=== PATIENT | female | born 1935 | race Caucasian/White ===

== ENCOUNTER → 2016-07-08 | Outpatient (CLI) | payer MEDICARE ==
[~2016-07-08] MED LIST: AMITRIPTYLINE25 MG PO; CALCIUM 500500 M2 PO; CLINDAMYCIN HC300 MG PO; HYDROCODONE BIT1 T11 PO; KEFLEX500 MG PO; LASIX40 MG PO; MACROBID100 M1 PO; MELOXICAM15 MG PO; MOBIC15 MG PO; NEURONTIN100 MG PO; POTASSIUM20 MEQ PO; PRILOSEC20 MG PO; RANITIDINE300 MG PO; SYNTHROID0.05 MG PO; VITAMIN B1100 MCG/ML IM; VITAMIN D1000 IU PO; XANAX0.25 MG PO; ZOCOR40 MG PO
== END | disposition home or self-care (01) ==
LOC: US 15:03
DX: M25.512 Pain in left shoulder (principal); M25.412 Effusion, left shoulder; R60.0 Localized edema

== ENCOUNTER 2017-04-06 18:58 | Emergency (ER) | payer MEDICARE ==
[~2017-04-06] VITALS: Ht 157.4 cm
[2017-04-06 19:35] VITALS: BP 170/80
[2017-04-06 20:15] LABS: BASO # 0.1 10*3/uL (0.0-0.1); BASO % 0.6 % (0.0-1.0); EOS # 0.1 10*3/uL (0.0-0.4); EOS % 1.2 % (1.0-4.0); HEMATOCRIT 39.8 % (37.0-47.0); HEMOGLOBIN 13.4 g/dl (12.0-16.0); LYMPH # 1.7 10*3/uL (1.3-4.4); LYMPH % 20.1 % (27.0-41.0); MEAN CELL VOLUME 91.9 fl (81.0-99.0); MEAN CORPUSCULAR HGB 30.9 pg (27.0-31.0); MEAN CORPUSCULAR HGB CONC 33.7 g/dl (33.0-37.0); MEAN PLATELET VOLUME 10.5 fl (9.6-12.3); MONO # 0.6 10*3/uL (0.1-1.0); MONO % 7.7 % (3.0-9.0); NEUT # 5.7 10*3/uL (2.3-7.9); NEUT % 70.2 % (47.0-73.0); PLATELET COUNT AUTOMATED 229 10*3/uL (130-400); RED BLOOD COUNT 4.33 10*6/uL (4.10-5.10); RED CELL DISTRI WIDTH 13.2 % (0-14.5); WHITE BLOOD COUNT 8.2 10*3/uL (4.8-10.8)
[2017-04-06 20:27] LABS: BUN 19 mg/dl (7-24); CHLORIDE 106 mmol/L (98-107); CREATININE 0.94 mg/dL (0.55-1.02); SODIUM 140 mmol/L (136-145)
[2017-04-06] MEDS ORDERED: BACTROBAN CREAM15 GM T (21:17)
[2017-04-06] MEDS ORDERED: VIBRAMYCIN100 MG PO (21:17)
== END 2017-04-06 21:26 | disposition home or self-care (01) ==
LOC: ED 18:58
PROVIDERS: Emergency Medicine
DX: L03.115 Cellulitis of right lower limb (principal); Z88.0 Allergy status to penicillin; Z88.2 Allergy status to sulfonamides; Z88.6 Allergy status to analgesic agent

== ENCOUNTER 2017-05-31 18:36 | Emergency (ER) | payer MEDICARE ==
[~2017-05-31] VITALS: Wt 61.2 kg
[~2017-05-31 18:36] MED LIST changes: +BACTROBAN CREAM15 GM T; +VIBRAMYCIN100 MG PO
[2017-05-31 19:31] LABS: BASO # 0.1 10*3/uL (0.0-0.1); BASO % 0.7 % (0.0-1.0); EOS # 0.1 10*3/uL (0.0-0.4); EOS % 0.9 % (1.0-4.0); HEMATOCRIT 38.5 % (37.0-47.0); LYMPH # 1.9 10*3/uL (1.3-4.4); LYMPH % 16.8 % (27.0-41.0); MEAN CELL VOLUME 90.8 fl (81.0-99.0); MEAN CORPUSCULAR HGB 30.7 pg (27.0-31.0); MEAN CORPUSCULAR HGB CONC 33.8 g/dl (33.0-37.0); MEAN PLATELET VOLUME 10.6 fl (9.6-12.3); MONO # 0.9 10*3/uL (0.1-1.0); NEUT # 8.4 10*3/uL (2.3-7.9); NEUT % 73.3 % (47.0-73.0); PLATELET COUNT AUTOMATED 219 10*3/uL (130-400); RED BLOOD COUNT 4.24 10*6/uL (4.10-5.10); RED CELL DISTRI WIDTH 13.1 % (0-14.5); WHITE BLOOD COUNT 11.5 10*3/uL (4.8-10.8)
[2017-05-31 19:45] LABS: ALBUMIN 3.8 gm/dl (3.1-4.5); ALKALINE PHOSPHATASE 103 U/L (45-117); BUN 20 mg/dl (7-24); CHLORIDE 107 mmol/L (98-107); POTASSIUM 3.9 mmol/L (3.5-5.1); SGOT/AST 16 IU/L (3-35); SGPT/ALT 16 U/L (12-78); SODIUM 139 mmol/L (136-145); TOTAL PROTEIN 6.9 gm/dL (6.4-8.2)
[2017-05-31 20:15] VITALS: BP 167/88
== END 2017-05-31 20:15 | disposition short-term general hospital (02) ==
LOC: ED 18:36
PROVIDERS: Nurse Practitioner
DX: M79.651 Pain in right thigh (principal); M54.6 Pain in thoracic spine; Z88.0 Allergy status to penicillin; Z88.6 Allergy status to analgesic agent; Z88.2 Allergy status to sulfonamides; Z88.1 Allergy status to other antibiotic agents; Z91.041 Radiographic dye allergy status; Z79.899 Other long term (current) drug therapy; Z90.49 Acquired absence of other specified parts of digestive tract; Z90.710 Acquired absence of both cervix and uterus; W17.89XA Other fall from one level to another, initial encounter; Y93.01 Activity, walking, marching and hiking; Y92.89 Other specified places as the place of occurrence of the external cause; Y99.8 Other external cause status

== ENCOUNTER → 2018-05-24 | Outpatient (CLI) | payer MEDICARE | END | disposition home or self-care (01) | LOC: CT 00:01 | DX: K44.9 Diaphragmatic hernia without obstruction or gangrene (principal); R16.1 Splenomegaly, not elsewhere classified; Z90.49 Acquired absence of other specified parts of digestive tract ==

== ENCOUNTER → 2018-08-10 | Day surgery (SDC) | payer MEDICARE ==
[~2018-08-10] VITALS: Ht 160 cm; Wt 62.6 kg
[~2018-08-10] MED LIST changes: +ALPRAZOLAM0.25 M2 PO; +AMITIZA24 MCG PO; +DILAUDID0.5 MG/0.5 IV; +GOOD NEIGHBOR PH5 MG PO; +HYDROCODONE-AC1 EAC1 PO; +MOBIC7.5 MG PO; +NORCO 5-325 TA1 EACH PO; +PEG3350238 GM PO; -SYNTHROID0.05 MG PO; +Synthroid,Levo50 MCG PO; +TYLENOL EXTRA500 M2 PO; +VITAMIN D5000 UNI1 PO
--- NOTE | ~2018-08-10 | O ---
[place], [place] OPERATIVE NOTE NAME: RALPH LOPEZ UNIT #: [id number] ROOM: DOCTOR: MENDOZA CAMEJO MD BIRTHDATE: [birth year] DOS: 08/10/2018 HISTORY OF PRESENT ILLNESS: The patient is an 83-year-old patient who was presented with chief complaint of constipation, change in bowel habit. ALLERGIES: PENICILLIN, SULFA, BIAXIN. FAMILY HISTORY: Aunt with colonic carcinoma. PAST SURGICAL HISTORY: Cholecystectomy, hysterectomy, thyroid. PAST MEDICAL HISTORY: Hypothyroidism. SOCIAL HISTORY: Nonsmoker, social alcohol consumer. She has been trying MiraLax b.i.d. and stool softener, none is helping her. PROCEDURE: Today's procedure part of investigation is colonoscopy. PREMEDICATION: Propofol. SCOPE: Olympus forward-viewing colonoscope 10L video. REPORT: After putting the patient in left lateral position and application of lubricant to the scope, the scope was introduced. Thereafter, under direct visualization, advanced through the length of colon without difficulty. Base of the cecum explored, appendiceal orifice identified, ileocecal valve was defined. Diverticulosis of sigmoid colon noticed. Air was suctioned out, gradually extubated and tolerated the procedure well. IMPRESSION: Diverticulosis, mostly concentrated in the sigmoid colon. PLAN AND DISCUSSION: Due to the fact that stool softener and MiraLax has not been helping her and she is quite distressed, we are going to start her on Amitiza 24 mcg every day, hoping that this would do. We are going to ask her to have a spoonful of Metamucil with hydration into her diet and office visit clinical reassessment. [place], [place] OPERATIVE NOTE NAME: RALPH LOPEZ UNIT #: [id number] ROOM: DOCTOR: MENDOZA CAMEJO MD BIRTHDATE: [birth year] MENDOZA CAMEJO MD CM:OPRECORD:OPERATIVE NOTE [id number] ALFREDO CAMEJO MD 08/10/18 0950 interface
[2018-08-10 07:46] VITALS: BP 190/89
[2018-08-10 08:54] VITALS: BP 156/81
[2018-08-10 09:09] VITALS: BP 169/88
[2018-08-10 09:24] VITALS: BP 174/85
[2018-08-10 09:39] VITALS: BP 168/84
== END | disposition home or self-care (01) ==
LOC: SDC 08-08 08:45
DX: K57.30 Diverticulosis of large intestine without perforation or abscess without bleeding (principal); K59.00 Constipation, unspecified; E03.9 Hypothyroidism, unspecified; J45.909 Unspecified asthma, uncomplicated; K21.9 Gastro-esophageal reflux disease without esophagitis; F32.9 Major depressive disorder, single episode, unspecified; M19.90 Unspecified osteoarthritis, unspecified site; F41.9 Anxiety disorder, unspecified; Z91.040 Latex allergy status; Z91.018 Allergy to other foods; Z88.0 Allergy status to penicillin; Z88.5 Allergy status to narcotic agent; Z88.2 Allergy status to sulfonamides; Z88.8 Allergy status to other drugs, medicaments and biological substances; Z88.1 Allergy status to other antibiotic agents; Z79.899 Other long term (current) drug therapy; Z90.49 Acquired absence of other specified parts of digestive tract; Z90.710 Acquired absence of both cervix and uterus; Z72.89 Other problems related to lifestyle; Z87.01 Personal history of pneumonia (recurrent); Z98.890 Other specified postprocedural states; Z96.653 Presence of artificial knee joint, bilateral; Z82.49 Family history of ischemic heart disease and other diseases of the circulatory system

== ENCOUNTER → 2018-10-31 | Outpatient (CLI) | payer MEDICARE | END | disposition home or self-care (01) | LOC: ORTHO 01:27 | DX: S92.114A Nondisplaced fracture of neck of right talus, initial encounter for closed fracture (principal); X58.XXXA Exposure to other specified factors, initial encounter; Y93.89 Activity, other specified; Y92.89 Other specified places as the place of occurrence of the external cause; Y99.8 Other external cause status ==

== ENCOUNTER 2018-11-13 20:19 | Inpatient (IN) | payer MEDICARE ==
[~2018-11-13] VITALS: Ht 152.4 cm; Wt 64.9 kg
--- NOTE | ~2018-11-13 | DS ---
[place], [place] DISCHARGE SUMMARY NAME: RALPH LOPEZ UNIT #: [id number] ROOM: 512 DOCTOR: AMA ESQUEAD MD BIRTHDATE: [birth year] DOS: 11/18/2018 DISCHARGE DIAGNOSES: 1. Advance adult failure to thrive and ambulatory dysfunction. 2. Musculoskeletal pains in the chest recurrent and chronic with negative cardiac enzymes. 3. Chronic lower back pains and lumbar spondylosis. 4. Major depression, recurrent, mild. 5. Hypothyroidism. 6. Benign essential hypertension. 7. Gastroesophageal reflux disease and esophagitis. 8. Generalized anxiety disorder. 9. Hypothyroidism. 10. Peripheral neuropathy. 11. Benign essential hypertension. 12. Osteoarthritis involving multiple joints. HOSPITAL COURSE: 1. The patient presented to the Emergency Department with advanced adult failure to thrive, being unable to live by herself at home. The patient was unable to take care of herself at home. The patient was admitted, started on physical therapy. 2. Musculoskeletal pains, which are chronic for her. Cardiac enzymes were checked and negative. The patient maintained a DNR comfort care code status. 3. Hypothyroidism. The patient on thyroid replacement. 4. Benign essential hypertension. Blood pressures are monitored and treated. 5. Major depression, recurrent, mild, treated and controlled. DISCHARGE MANAGEMENT: Xanax p.r.n. The patient on Elavil, Dulcolax, Synthroid, Mobic, Prilosec, MiraLax, [place], Zofran, Tums. [place], [place] DISCHARGE SUMMARY NAME: RALPH LOPEZ UNIT #: [id number] ROOM: 512 DOCTOR: AMA ESQUEDA MD BIRTHDATE: [birth year] AMA EQSUEDA MD CM:DISCHARG [id number] AMA ESQUEDA MD 12/16/18 1839 interface
--- NOTE | ~2018-11-13 | PR ---
[place], [place] PROGRESS NOTE [id number] UNIT #: [id number] ROOM: 512 DOCTOR: AMA ESQUEDA MD BIRTHDATE: [birth year] DOS: 11/18/2018 SUBJECTIVE: The patient continues to feel better. She is still weak and ambulating with the help of physical therapy. OBJECTIVE: VITAL SIGNS: Blood pressure 150/75, heart rate 71 beats per minute, breathing 18 times per minute, temperature 98 degrees Fahrenheit. GENERAL APPEARANCE: The patient is alert and oriented x 3, in no visible distress, except for generalized weakness. HEENT AND NECK: Exam within normal limits. CARDIOVASCULAR SYSTEM: Heart rate is regular in rate and rhythm. S1 and S2 normally audible. LUNGS: Clear to auscultation. ABDOMEN: Soft, nontender. No obvious organomegaly. Bowel sounds are present. EXTREMITIES: Without significant cyanosis or edema. IMPRESSION AND PLAN: 1. Advanced adult failure to thrive and ambulatory dysfunction with recurrent falls at home. He is improving with physical therapy and waiting to be transferred to rehab after arrangements are complete. 2. Musculoskeletal pains in her chest, which are recurrent and chronic with negative cardiac enzymes. 3. Chronic lower back pains, treated with Tylenol, improved. 4. Major depression, recurrent, mild, treated and controlled. 5. Hypothyroidism, replaced with supplements. 6. Benign essential hypertension, treated and blood pressure is staying normal. AMA ESQUEDA MD CM:PNTRANS [phone] AMA ESQUEDA MD 11/18/18 1908 interface
--- NOTE | ~2018-11-13 | PR ---
[place], [place] PROGRESS NOTE NAME: [facility]PH [facility]OPE[id number] UNIT #: [id number] ROOM: 512 DOCTOR: AMA ESQUEDA MD BIRTHDATE: [birth year] DOS: 11/16/2018 SUBJECTIVE: The patient is feeling somewhat better and working with physical therapy. OBJECTIVE: GENERAL APPEARANCE: The patient is alert and oriented x 3, in no visible distress. Generalized weakness. VITAL SIGNS: Blood pressure 127/60, heart rate 76 beats per minute, breathing 18 times per minute, temperature 98 degrees Fahrenheit. HEENT AND NECK: Exam within normal limits. CARDIOVASCULAR SYSTEM: Heart rate is regular in rate and rhythm. S1 and S2 normally audible. LUNGS: Clear to auscultation. ABDOMEN: Soft, nontender. No obvious organomegaly. Bowel sounds are present. EXTREMITIES: Without significant cyanosis or edema. IMPRESSION: 1. Advanced adult failure to thrive and ambulatory dysfunction, recurrent falls at home. The patient unable to take care of herself at home despite of recent rehabilitation and requires placement. Case management working on this. 2. Musculoskeletal pains in her chest, which the patient says are chronic for her. No new change. Cardiac enzymes are negative and the patient maintains a DNR/CC code status. 3. Major depression, recurrent, mild, treated and controlled and followed. 4. Hypothyroidism. The patient remained on thyroid supplements. 5. Benign essential hypertension, treated and controlled. Blood pressures are staying normal. AMA ESQUEDA MD CM:PNTRANS [phone] AMA ESQUEDA MD 11/16/18 2337 interface
--- NOTE | ~2018-11-13 | PR ---
[place], [place] PROGRESS NOTE [id number] UNIT #: [id number] ROOM: 512 DOCTOR: AMA ESQUEDA MD BIRTHDATE: [birth year] DOS: SUBJECTIVE: The patient is feeling somewhat better and very weak, working with Physical Therapy. The patient's code status has been changed to DNR/CC in communication with her family and patient is agreeable. OBJECTIVE: VITAL SIGNS: Blood pressure 126/60, heart rate 69 beats per minute, breathing 18 times per minute, temperature 98 degrees Fahrenheit. IMPRESSION AND PLAN: 1. Adult failure to thrive and ambulatory dysfunction with recurrent falls in rehab. 2. Musculoskeletal chest pains, which are chronic for her. Cardiac enzymes negative. 3. Major depression, recurrent, mild, treated and controlled. 4. The patient awaiting for placement. Case discussed with case management today. 5. Hypothyroidism, replaced with thyroid supplements. 6. Benign essential hypertension, treated and controlled. AMA ESQUEDA MD CM:PNTRANS [phone] AMA ESQUEDA MD 11/15/181938 interface
--- NOTE | ~2018-11-13 | PR ---
[place], [place] PROGRESS NOTE NAME: RALPH LOPEZ UNIT #: [id number] ROOM: 512 DOCTOR: AMA ESQUEDA MD BIRTHDATE: [birth year] DOS: 11/17/2018 SUBJECTIVE: The patient is feeling much better. OBJECTIVE: VITAL SIGNS: Blood pressure 156/66, heart rate of 71 beats per minute, temperature of 98.1 degrees Fahrenheit. GENERAL APPEARANCE: The patient is alert and oriented x 3, in no visible distress, generalized weakness. HEENT AND NECK: Exam within normal limits. CARDIOVASCULAR SYSTEM: Heart rate is regular in rate and rhythm. S1 and S2 normally audible. LUNGS: Clear to auscultation. ABDOMEN: Soft, nontender. No obvious organomegaly. Bowel sounds are present. EXTREMITIES: Without significant cyanosis or edema. IMPRESSION: 1. The patient with advanced adult failure to thrive and ambulatory dysfunction with recurrent falls at home, waiting for rehabilitation. Case management is working with the patient. 2. Musculoskeletal pains in her chest, which are chronic and recurrent. Cardiac enzymes were negative. The patient is a DNR-CC. 3. Chronic lower back pains to be treated with Tylenol 1 gram 3 times a day as recommended. 4. Major depression, recurrent, mild, treated and controlled. 5. Hypothyroidism, treated with thyroid supplements. 6. Benign essential hypertension, treated and controlled. AMA ESQUEDA MD CM:PNTRANS [phone] AMA ESQUEDA MD 11/18/18 0335 interface
--- NOTE | ~2018-11-13 | EKG ---
[place], [place] ELECTROCARDIOGRAM REPORT NAME: RALPH LOPEZ UNIT #: [id number] ROOM: 512 DOCTOR: TALISHA DRAFT REPORT BIRTHDATE: [birth year] [facility] Test Date: 2018-11-13 Test Time: 20:21:17 Pat Name: RALPH LOPEZ Department: er Room: 512 Gender: F Desk Lieutenant: : 1935 Requested By: ROSCOE RANDALL Order Number: [id number] Reading MD: Ruslan Cody Measurements Intervals [place] Rate: 99 P: 40 WV: 137 QRS: 10 QRSD: 104 T: 2 QT: 327 QTc: 420 Interpretive Statements Sinus tachycardia Ventricular premature complex Probable left ventricular hypertrophy Electronically Signed On 11-16-2018 13:18:43 PDT by Ruslan Cody CM:EKGRPT:ELECTROCARDIOGRAM REPORT 20 1318 ROSCOE BARNES DRAFT REPORT ROSCOE RANDALL DO
--- NOTE | ~2018-11-13 | WRIGHTHP ---
[place], [place] PATIENT HISTORY AND PHYSICAL EXAM NAME: RALPH LOPEZ [facility] #: [id number] UNIT #: [id number] ROOM: 512 DOCTOR: AMA ESQUEDA MD BIRTHDATE: [birth year] DOS: 11/13/2018 HISTORY OF PRESENT ILLNESS: The patient is an 83-year-old female with a past medical history of: 1. Ambulatory dysfunction. 2. Adult failure to thrive. 3. Osteoarthritis involving multiple joints. 4. Benign essential hypertension. 5. Peripheral neuropathy. 6. Hypothyroidism. 7. Generalized anxiety disorder. 8. Gastroesophageal reflux disease and esophagitis. 9. Major depression, recurrent, mild. The patient presented to the Emergency Department with advanced adult failure to thrive and being unable to live by herself at home. The patient evaluated in the Emergency Department where she was having significant anxiety episodes and she had not taken her Xanax at home. The patient also informed the Emergency Department that she was unable to take care of herself at home and she already had recent rehab at longterm facility. No dizziness or fainting episode. No other GI or urinary symptoms. REVIEW OF SYSTEMS: RESPIRATORY: No increasing shortness of breath. GASTROINTESTINAL: No nausea, vomiting, diarrhea, or constipation. CARDIOVASCULAR: Recurrent chest pains, which are chronic for her and thought to be musculoskeletal for many years. FAMILY HISTORY: Noncontributory. MEDICATIONS: Xanax, amitriptyline, Dulcolax, vitamin D, hydrocodone, levothyroxine, meloxicam, omeprazole, and MiraLax. ALLERGIES: Known allergies to PENICILLIN, SULFUR, IODINE, MORPHINE, QUINOLONES, DEMEROL, LATEX. PHYSICAL EXAMINATION: GENERAL: Alert and oriented x 3, in no visible distress, generalized weakness. VITAL SIGNS: Blood pressure 126/56, heart rate 76 beats per minute, breathing 18 times per minute, temperature of 98 degrees Fahrenheit. HEENT AND NECK: Extraocular movements are intact. Sclerae are anicteric. Oral mucosa is moist and clean. No obvious facial weakness. Neck is supple without any lymphadenopathy. No thyromegaly. No JVD. No carotid arterial bruits. LUNGS: Clear to auscultation. No wheezing. No rhonchi. CARDIOVASCULAR SYSTEM: Heart rate is regular in rate and rhythm. S1 and S2 normally audible. No significant murmur or any other abnormal cardiac sounds. ABDOMEN: Soft, nontender. No obvious organomegaly. Bowel sounds are present. No obvious herniation. EXTREMITIES: Without significant cyanosis or edema. Warm to touch. CENTRAL NERVOUS SYSTEM: Alert and oriented x 3. Cranial nerves II-XII are [place], [place] PATIENT HISTORY AND PHYSICAL EXAM NAME: RALPH LOPEZ UNIT #: [id number] ROOM: [facility] DOCTOR: AMA ESQUEDA MD BIRTHDATE: [birth year] intact. Speech is normal. The patient is able to move all extremities. Normal muscle strength. Deep tendon reflexes are equal on both sides. Plantars were downgoing. IMPRESSION: 1. The patient with advanced adult failure to thrive, ambulatory dysfunction and recurrent falls at home, unable to take care of herself despite of recent rehabilitation. The patient may require placement and case management have been consulted. 2. Musculoskeletal chest pains, which are chronic for her. Cardiac enzymes negative. The patient maintains a DNR comfort care code status. 3. Major depression, recurrent, mild, treated and controlled. 4. Hypothyroidism, replaced with thyroid supplements. 5. Benign essential hypertension, treated and controlled. AMA ESQUEDA MD CM:HISPHYS:PATIENT HISTORY AND PHYSICAL EXAMINATION [phone] AMA ESQUEDA MD 11/14/18 1705 interface
[~2018-11-13 20:19] MED LIST changes: -PEG3350238 GM PO; -TYLENOL EXTRA500 M2 PO; -VITAMIN D5000 UNI1 PO
[2018-11-13 20:32] VITALS: BP 167/76
[2018-11-13 20:54] VITALS: BP 191/91
[2018-11-13 21:05] LABS: BASO # 0.1 10*3/uL (0.0-0.1); BASO % 0.6 % (0.0-1.0); EOS # 0.1 10*3/uL (0.0-0.4); EOS % 1.2 % (1.0-4.0); HEMATOCRIT 37.1 % (37.0-47.0); HEMOGLOBIN 12.5 g/dl (12.0-16.0); LYMPH # 1.9 10*3/uL (1.3-4.4); LYMPH % 18.2 % (27.0-41.0); MEAN CELL VOLUME 93.9 fl (81.0-99.0); MEAN CORPUSCULAR HGB 31.6 pg (27.0-31.0); MEAN CORPUSCULAR HGB CONC 33.7 g/dl (33.0-37.0); MEAN PLATELET VOLUME 10.9 fl (9.6-12.3); MONO # 0.8 10*3/uL (0.1-1.0); NEUT # 7.4 10*3/uL (2.3-7.9); NEUT % 71.7 % (47.0-73.0); PLATELET COUNT AUTOMATED 204 10*3/uL (130-400); RED BLOOD COUNT 3.95 10*6/uL (4.10-5.10); RED CELL DISTRI WIDTH 12.8 % (0-14.5); WHITE BLOOD COUNT 10.3 10*3/uL (4.8-10.8)
[2018-11-13 21:17] LABS: ACT PARTIAL THROMBO TIME 23.9 SECONDS (20.0-32.1); INTERNATIONAL NORM RATIO 0.9 (2.0-3.5)
[2018-11-13 21:30] VITALS: BP 148/60
[2018-11-13 21:36] LABS: ALBUMIN 3.7 gm/dl (3.1-4.5); CREATININE 1.52 mg/dL (0.55-1.02); TOTAL PROTEIN 6.5 gm/dL (6.4-8.2); TROPONIN I 0.026 ng/ml (<0.045)
[2018-11-13 21:55] VITALS: BP 145/63
[2018-11-13 22:30] VITALS: BP 143/60
[2018-11-13 23:09] LABS: BILIRUBIN NEGATIVE (NEGATIVE); BLOOD NEGATIVE (NEGATIVE); CLARITY CLEAR (CLEAR); COLOR YELLOW (YELLOW); GLUCOSE NEGATIVE (NEGATIVE); KETONE NEGATIVE (NEGATIVE); LEUKO ESTERASE 1+ (NEGATIVE); NITRITE NEGATIVE (NEGATIVE); UROBILINOGEN 0.2 E.U./dl (0.2-1.0)
[2018-11-14 00:50] VITALS: BP 145/63
--- NOTE | 2018-11-14 00:50 | NUR ---
A 83, admitted to , under the services of Dr. YIN PHOENIX,AMA White with a diagnosis of CHEST PAIN. Chief complaint is RECENT RIGHT FOOT FRACTURE. [facility]. PATIENT HOME FOR LESS THAN 3 HRS. C/O NUMBNESS, BURN, TINGLING BACK PF LEGS AND THIGHS. Patient arrived via bed from ER. Monitor applied. Initial assessment completed. Vital signs taken and recorded. DR. YIN PHOENIX,AMA White notified of admission to the unit. Orders received. See assessment for past medical history, medications and allergies. Patient and/or family oriented to unit. [facility] visitation policy reviewed. Clothing/patient valuable form completed. LINDA MCCURDY
[2018-11-14] MEDS ORDERED: PEG3350238 GM PO (01:09)
[2018-11-14] MEDS ORDERED: VITAMIN D5000 UNI1 PO (01:11)
--- NOTE | 2018-11-14 02:00 | NUR ---
DR ESQUEDA CONTACTED, ADMISSION ORDERS RECEIVED
--- NOTE | 2018-11-14 06:00 | NUR ---
RESTED SINCE ARRIVING ON FLOOR. RESPIRATIONS EASY. CALL LIGHT WITHIN REACH. BED ALARM MAINTAINED FOR SAFETY
--- NOTE | 2018-11-14 07:15 | NUR ---
PHYSICAL THERAPY Patient evaluated on 5, full evaluation to follow. Continue with PT as per plan of care with fall, alarm, min-mod (A), WBAT R LE and acute debility precautions. Recommend return to SNF. PAtient is moderate complexity via chart review, tests and evaluation: [id number]. Thank you for this referral. Oliva Gustafson,PT
--- NOTE | 2018-11-14 09:25 | NUR ---
Oliva Blount was evaluated by occupational therapy this date. SHe requires increased assistance with ADL's and functional transfers since being discharged from SNF. Oliva currently requries min assist for bedmobility and min assist for functional transfers with a FWW. Continued occupational therapy is recommended while the patient is in the hospotal and in a SNF to improve her balance, endurance, strength, and safety awareness. Mihaela Savage OTR/L
[2018-11-14 16:00] VITALS: BP 126/56
[2018-11-14 20:00] VITALS: BP 112/62
[2018-11-15] VITALS: BP 126/60
--- NOTE | 2018-11-15 08:55 | NUR ---
RALPH LOPEZ [id number] Please refer to the physician's history and physical for past medical history, comorbid conditions, and allergies. Diagnosis: CHEST PAIN, ANXIETY Lexx Score: 16,AT RISK WOUND DESCRIPTIONS: Wound Number: 1 Location of the wound: right medial aspect of great toe Type of wound: stage 2 medical records analyst Thickness: Partial Size: 0.5cm x 0.4cm x 0.1cm Tunneling: none Undermining: none Sinus Tract: none Presence of Exudate: Amount: None Color: Red Odor: None Periwound Skin Appearance: Normal Wound edges: approximated Pain (associated with wound): none at time of assessment How does patient state this happened? pt stated she fractured her ankle and was following with Dr. Teran she stated she was wearing a boots that was to large and caused this area patient son stated she has a follow up appointment with Dr. Teran and will follow up with her regarding this. Bilateral heels are mushy to touch. No open areas at time of assessment area is pink in color at time of assessment. Surface the patient is resting on: Position Pro SKIN PREVENTION RECOMMENDATION: 1. Pressure redistribution support surface as appropriate 2. Elevate heels 3. Remove boots/TEDS every shift and reapply 4. Head of bed 30 degrees as tolerated 5. Assess nutrition and hydration 6. Manage moisture 7. Avoid the use of containment devices while in bed 8. Use absorptive products on surfaces limit layers of linens on bed 9. Turn and reposition every 1-2 hours in bed and every 1 hour in chair as tolerated 10. Weight shifts every 15 minutes while up in chair 11. Offloading with pillows or device to keep heels elevated off bed 12. Monitor skin at least every shift 13. Inspect under medical devices twice a day WOUND TREATMENT RECOMMENDATIONS: Heel raiser pro boots to bilateral heels while in bed. Partial thickness guidelines: Cleanse right medial aspect of great toe with nss and apply sureprep around the wound hydrogel to wound bed and cover with optifoam gentle.
--- NOTE | 2018-11-15 09:10 | NUR ---
Patient was snf at [facility] from 10/07/18 to 11/07/18. She has used her 100% full pay days for prison and is now into her co-pay days of approximately $170/day. If patient wants to return to [facility] she will be required to pay two weeks of copay upfront prior to being accepted.
--- NOTE | 2018-11-15 10:30 | NUR ---
OT NOTE Pt was seen this A.M. 1:1 for 30 minute OT session. Upon arrival pt was sitting upright on the EOB with family memebers at bedside. Pt identified by name and and had complaints of 6/10 "all over" pain. While sitting EOB requested for pt to doff/fernie B socks. Pt was able to doff socks with modA and fernie with maxA due to increased pain in her back with forward flexion, pt was unable to complete compensatory technique. Educated and demonstrated use of LB adaptive equipment consisting of sock aid, bridge carpenter, and long handle sponge. Pt doffed B socks using bridge carpenter with SBA. Donned R sock using sock aid with Korina for inital assistance with sequencing and L sock with SBA. Educated pt on long handled sponge and pt stated she did not need one due to using one at home. Sit to stand then completed from bed level with Korina and use of w/w for UE support. Challenged pt's static standing tolerance needed for increased I in self care tasks and functional transfers. Pt was able to tolerate aprox 2 minutes at a time before sitting due to fatigue, pain, and SOB. pt was left sitting upright in recliner with call light in hand, tray table in place, and body alarm on for safety. Continue with rec D/C plan to SNF. TONY Barnes/Prachi
--- NOTE | 2018-11-15 10:35 | NUR ---
PHYSICAL THERAPY Patient seen this am 1;1 for therapy visit and was sitting up EOB following patient care upon therapist arrival. Patient was very pleasant this morning, voicing 6/10 B foot / calf pain. Patient peformed several sit to stand transfers at bedside with Min A, demonstrating very slow rise. Patient needed v/c for proper hand placement, while ambulating with use of wh walker, 40'x 1, demonstrating very slow valentina, Min A and Poor upright posture. Patient returned to bedside chair and remained with call light, tray table, telephone and body alarm. Patient would benefit from SNF to improve safe, functinal transfer / mobility to return to PLOF. Will continue per POC as tolerated, total treatment time 15 minutes. Rizwan Mustafa, MANAGER OF FINANCIAL REPORTING
[2018-11-15 12:00] VITALS: BP 130/59
--- NOTE | 2018-11-15 12:00 | NUR ---
Assistant Coach in to see patient. She is sitting up in her bedside chair without distress noted. Son, Jd, and [id number], Dulce, are sitting at the bedside. She states she lives at home alone with her family checking in on her. There are basement steps and 2 back porch steps. She needs minimal assistance in her ADLs and ambulates with a cane. Discussed short term SNF and she is agreeable. Discussed she is out of full SNF days and would have to pay 2 weeks upfront and she and family is agreeable. Son would like to pay 3 weeks upfront as he is going on vacation and would like to make sure everything is taken care of while he is away. Notified land use planner. Patient and family requested MPOA and living will papers to be completed. Living will and MPOA papers completed and witnessed by 2 nurses. Original copy given to patient and copy placed on chart.
--- NOTE | 2018-11-15 13:34 | NUR ---
Patient and family requesting referral to [facility], son stating he will pay 3 weeks of copay days upfront. Contacted Shara at facility and faxed referral and notified her of son's intension of paying copay up front. Will require precert. waiting on review/acceptance.
[2018-11-15 16:00] VITALS: BP 151/76
[2018-11-15 20:00] VITALS: BP 140/65
--- NOTE | 2018-11-15 22:45 | NUR ---
PATIENT STATES THAT OPTIFOAM DRESSING ON RIGHT GREAT TOE IS RUBBING THE TOP OF HER FOOT AND 2ND. OPTIFOAM REMOVED. SITE CLEANED ORDERED, HYDROGEL APPLIED,AND COVERED WITH BANDAID. PATIENT STATES THAT IT FEELS BETTER AT THIS TIME.
[2018-11-16] VITALS: BP 142/61
--- NOTE | 2018-11-16 04:44 | NUR ---
24 HR chart check completed.
--- NOTE | 2018-11-16 09:00 | NUR ---
Firewall Engineer in to see patient. No new needs or request at this time. When medically stable, auth is received, and family has made payment to [facility] she will be discharged to [facility]. landscape architect and planner following.
--- NOTE | 2018-11-16 09:15 | NUR ---
[facility] and then start precert. will have to wait for auth.
[2018-11-16 12:00] VITALS: BP 132/57
--- NOTE | 2018-11-16 12:15 | NUR ---
OT NOTE Pt was seen this P.M. 1:1 for 25 minute OT session. Upon arrival pt was sitting reclined in recliner. Pt identified by name and and had complaints of 5/10 low back and LLE pain pointing towards thigh area. Challenged pt's carry over with LB adaptive equipment previously educated on. While using the medical office receptionist assistant pt was able to doff B socks with Korina for inital sock due to poor sequencing, and then doffed second sock with SBA. Pt then donned B socks with SBA and occasional verbal prompts for sequencing. Pt completed sit to stand transfer from chair level with modA for inital stand. Educated pt on technique of moving towards the edge of the chair, pushing up from arm rest, wider base of support, and nose over toes and pt completed two other sit to stands with Korina and use of w/w for UE support. Challenged pt's static standing tolerance needed for increased I in self care tasks and functional transfers. Pt was able to tolerate aprox 1-2 minutes at a time before sitting due to fatigue. Functional mobility completed into the bathroom with CGA and use of w/w. There she transferred on/off standard commode with Korina and use of grab bar. Clothing management completed with modA due to being unsteady without UE support. Pt then stood sink side while washing her hands with CGA for safety. Pt returned to recliner with CGA where she was left sitting upright under MOTOR EQUIPMENT CAPTAIN supervision. Continue with rec D/C plan to SNF. CHRISTEN Barnes
--- NOTE | 2018-11-16 13:15 | NUR ---
PHYSICAL THERAPY 1:1 Time: 30 Pain on a scale of 0-10 > Prior to treatment:10/28 Post treatment: 11/28 Progress note: Pt seen this date for Physical Therapy Services. Pt seen for one on one treatment including functional therex this date as well as gait to improve endurance and functional mobility. Seated therex done this date to aid in sit to stands in which patient had difficulty with. Seated therex included seated marching, long arc quads, toe raises, and hip adduction and abduction. Pt ambulated 20ft x 2 with a standing rest required secondary to decrease activity tolerance as well as verbal cueing for technique and posture. Pt with cueing required for safety with sit to stands as well as for turns with the wheeled walker. Pt with poor technique with the sit to stands with min to moderate assistance required for technique. Pt with poor concentration and was easily distracted. Pt returned back to her seat and her lunch was ordered. Her call button and tray table were placed within reach of the patient. Pt seen for 15 minutes of functional therex this date followed by 15 minutes of gait and transfers this date. JUNG HALL SILVERER
[2018-11-16 16:00] VITALS: BP 127/60
[2018-11-16 20:00] VITALS: BP 148/69
[2018-11-17] VITALS: BP 125/63
--- NOTE | 2018-11-17 | NUR ---
PT RESTING QUIETLY IN BED. DENIES ANY NEEDS AT THIS TIME
[2018-11-17 08:00] VITALS: BP 156/66
--- NOTE | 2018-11-17 08:38 | NUR ---
NEW ORDERS RECEIVED BY DR OLMEDO FOR PATIENT BACK PAIN. TRAMADOL WAS ORDERED A ONCE DOSE AND ADMINISTERED AT THIS TIME. WILL MONITOR FOR SYMPTOM RESOLUTION AND FOLLOW UP ORDERED. PER DR OLMEDO, IF MEDICATION EFFECTIVE, ADD TO EMAR PRN DOSE. EDUCATION AND SUPPORT PROVIDED FOR PATIENT WITH VOICED UNDERSTANDING AND APPRECIATION. WILL CONTINUE TO MONITOR.
--- NOTE | 2018-11-17 09:31 | NUR ---
OT Note Pt was seen this AM 1:1 for 21 minute OT session. Upon arrival pt was supine in bed with bed alarm on. Pt identified by name and and had complaints of 5/10 pain in lower back area and left LE. Supine-sit bed mobility completed with stand by assist. Sit-stand from EOB required min assist. Verbal cues given to stop and catch bearings before moving. Functional mobility completed into bathroom with use of w/w needing contact guard for safety due to being impulsive with rushing. Pt was able to transfer on and off standard commode with min assist. Toileting and toilet hygeine performed with stand by assist. Functional mobility completed to sink side with w/w requiring contact guard assist. Self-care task that consisted of washing hands was performed at sink side. Pt was able to tolerate dynamic standing balance for about 5 minutes. Pt was left reclined in recliner chair with feet up, pillow under head for support, body alarm on for safety, and call light within reach. Continue with rec D/C to SNF. Bryson HERMAN/Student TONY Barnes/Prachi
--- NOTE | 2018-11-17 09:43 | NUR ---
PHYSICAL THERAPY Patient seen this am 1:1 for therapy visit and was supine in bed upon therapist arrival. Patient reports mild low back pain 5/10 with referred pain to L LE upon standing activities. Patient transfers supine to sit EOB with Min A and sit to stand Min A. Patient ambulates 15'x 1 to bathroom then additional 40'x 1, use of wh walker, Min A, demonstrating very slow valentina, decreased upright posture / stride and increased fatigue. Patient needed v/c for improved walker safety / navigation, especially during 180 turns and returned to bedside chair. Patient remained in chair with call light, telephone and body alarm. Will continue per POC as tolerated, total treatment time 14 minutes. Rizwan Mustafa, SUPERVISOR CHANNEL PROCESS
[2018-11-17 12:00] VITALS: BP 139/89
--- NOTE | 2018-11-17 14:28 | NUR ---
Dulce Blount, [id number], called and states they prepaid at [facility]. Awaiting auth. inventory planner following.
[2018-11-17 16:00] VITALS: BP 149/85
[2018-11-18] VITALS: BP 129/57
[2018-11-18 08:00] VITALS: BP 150/75
--- NOTE | 2018-11-18 09:00 | NUR ---
Metal Bonding Worker in to see patient. No new needs or request at this time. When medically stable and auth is received she will be discharged to [facility]. store planner following.
--- NOTE | 2018-11-18 09:50 | NUR ---
PHYSICAL THERAPY Patient seen this am 1:1 for therapy visit and was sitting up in bedside chair upon therapist arrival. Patient voices no new c/o's and was very pleasant this morning. Patient transfers sit to stand Mod A x 1 from low chair surface with use of wh walker standing support. Patient ambulates Min A, 30'x 1, wh walker, demonstating very slow gait pattern, unsteady balance during 180 turns and returned to bedside chair with Mild fatigue noted. Patient remained in chair with call light, tray table,telephone and body alarm for safety. Will continue per POC as tolerated, total treatment time 14 minutes. Rizwan Mustafa, ELECTRICAL HARDWARE ENGINEER
--- NOTE | 2018-11-18 10:25 | NUR ---
OT NOTE Pt was seen this A.M. 1:1 for 17 minute OT session. Upon arrival pt was sitting reclined in recliner. Pt identified by name and and had no complaints at this time. Pt donned B shoes with Korina for assistance with getting over her heels. Pt completed multiple sit to stand transfers from chair level with modA and use of w/w for UE support. Challenged pt's static standing tolerance needed for increased I in self care tasks and functional transfers. Pt was able to tolerate aprox 3 minutes at a time before sitting due to fatigue. Challenged pt's dynamic standing balance to simulate sink side grooming while weight shifting, crossing midline, and reaching over all planes. Pt was able to maintain F- standing balance. Pt completed functional mobility to the bathroom and back with CGA and use of w/w, pt required a stanidng rest break residential due to quick onset of fatigue. Pt was left sitting reclined in the recliner with call light in hand, tray table in place, and body alarm activated for safety. Continue with rec D/C plan to SNF. TONY Barnes/Prachi
--- NOTE | 2018-11-18 14:24 | NUR ---
Patient has received auth for [facility] and can go today if medically stable for discharge.
--- NOTE | 2018-11-18 14:28 | NUR ---
Informed Dr. Vaughn patient has auth to go to [facility]. He states he will try to discharge her later if not he will ask Dr. Suh to discharge tomorrow. urban and regional planner notified.
[2018-11-18 16:00] VITALS: BP 153/68
[2018-11-18] MEDS ORDERED: TYLENOL EXTRA500 M2 PO (16:30)
--- NOTE | 2018-11-18 19:26 | NUR ---
MSDIS Discharge instructions reviewed with patient/family. Patient receptive and verbalizes understanding. Follow-up care arranged. Written instructions given to patient/family. NABOR VERDE
--- NOTE | 2018-11-21 07:38 | NUR ---
PHYSICAL THERAPY CO-SIGN I approve of the Phyical Therapy notes written above. RALPH NJ PT
--- NOTE | 2018-11-21 07:46 | NUR ---
OCCUPATIONAL THERAPY CO-SIGN I approve of the Occupational Therapy notes written above. REBECCA MARCELINO OTR/Prachi
== END 2018-11-18 19:26 | disposition other institution (70) | DRG 641 ==
LOC: ED 20:19 → 5E 22:30 → EDHOLD 22:30 → 5E 11-14 00:20
PROVIDERS: Emergency Medicine; ADMIT Internal Medicine
DX: R62.7 Adult failure to thrive (principal); F33.0 Major depressive disorder, recurrent, mild; R07.89 Other chest pain; Z66 Do not resuscitate; Z51.5 Encounter for palliative care; F41.1 Generalized anxiety disorder; M13.0 Polyarthritis, unspecified; K21.9 Gastro-esophageal reflux disease without esophagitis; I10 Essential (primary) hypertension; G62.9 Polyneuropathy, unspecified; G89.29 Other chronic pain; M54.5 Low back pain; R29.6 Repeated falls; E89.0 Postprocedural hypothyroidism; Z88.0 Allergy status to penicillin; Z88.2 Allergy status to sulfonamides; Z88.8 Allergy status to other drugs, medicaments and biological substances; Z91.040 Latex allergy status; Z88.5 Allergy status to narcotic agent; Z91.09 Other allergy status, other than to drugs and biological substances; Z90.710 Acquired absence of both cervix and uterus; Z91.81 History of falling; Z87.440 Personal history of urinary (tract) infections; Z90.49 Acquired absence of other specified parts of digestive tract; Z98.891 History of uterine scar from previous surgery; Z82.49 Family history of ischemic heart disease and other diseases of the circulatory system; Z82.3 Family history of stroke

== ENCOUNTER → 2018-11-22 | Outpatient (CLI) | payer MEDICARE ==
[~2018-11-22] MED LIST changes: +PEG3350238 GM PO; +TYLENOL EXTRA500 M2 PO; +VITAMIN D5000 UNI1 PO
== END | disposition home or self-care (01) ==
LOC: ORTHO 02:15
DX: S92.191 Other fracture of right talus (principal); S82.891G Other fracture of right lower leg, subsequent encounter for closed fracture with delayed healing; M79.604 Pain in right leg; X58.XXXD Exposure to other specified factors, subsequent encounter

== ENCOUNTER → 2019-06-28 | Outpatient (CLI) | payer MEDICARE | END | disposition home or self-care (01) | LOC: CARD 00:05 | DX: I34.0 Nonrheumatic mitral (valve) insufficiency (principal) ==

== ENCOUNTER 2019-07-12 16:10 | Emergency (ER) | payer MEDICARE ==
[~2019-07-12] VITALS: Ht 154.9 cm; Wt 62.6 kg
[2019-07-12 16:15] VITALS: BP 190/83
[2019-07-12 17:26] LABS: CLARITY CLEAR (CLEAR); COLOR YELLOW (YELLOW)
[2019-07-12 17:27] LABS: BILIRUBIN NEGATIVE (NEGATIVE); BLOOD NEGATIVE (NEGATIVE); GLUCOSE NEGATIVE (NEGATIVE); KETONE NEGATIVE (NEGATIVE); LEUKO ESTERASE NEGATIVE (NEGATIVE); NITRITE NEGATIVE (NEGATIVE); UROBILINOGEN 0.2 E.U./dl (0.2-1.0)
[2019-07-12 17:28] LABS: BACTERIA TRACE; EPITHELIAL CELLS 0-2; WBC 0-2 wbc/hpf (0-5)
[2019-07-12] MEDS ORDERED: CEPHALEXIN500 M1 PO (17:37)
[2019-07-12] MEDS ORDERED: PYRIDIUM200 M1 PO (17:37)
== END 2019-07-12 17:43 | disposition home or self-care (01) ==
LOC: ED 16:10
PROVIDERS: Physician Assistant
DX: R30.0 Dysuria (principal); R35.0 Frequency of micturition; R39.15 Urgency of urination; R11.0 Nausea; J45.909 Unspecified asthma, uncomplicated; K21.9 Gastro-esophageal reflux disease without esophagitis; M79.7 Fibromyalgia; M19.90 Unspecified osteoarthritis, unspecified site; Z79.899 Other long term (current) drug therapy; Z88.0 Allergy status to penicillin; Z88.2 Allergy status to sulfonamides; Z88.1 Allergy status to other antibiotic agents; Z91.040 Latex allergy status; Z88.6 Allergy status to analgesic agent; Z88.8 Allergy status to other drugs, medicaments and biological substances

== ENCOUNTER 2020-06-04 06:13 | Inpatient (IN) | payer MEDICARE ==
[~2020-06-04] VITALS: Ht 157.4 cm; Wt 66.7 kg
[~2020-06-04 06:13] MED LIST changes: +CEPHALEXIN500 M1 PO; +PYRIDIUM200 M1 PO
[2020-06-04 06:18] VITALS: BP 213/85
--- NOTE | 2020-06-04 06:31 | NUR ---
DR RANDALL INFORMED THAT PATIENT ASKING FOR PAIN MEDICATION AT THIS TIME.
[2020-06-04 06:51] VITALS: BP 183/100
--- NOTE | 2020-06-04 09:11 | NUR ---
12 SUTURES PLACED IN LEFT CALF BY DR. ROJAS. PT IS RESTING IN BED. DRESSING PLACED.
[2020-06-04 10:16] VITALS: BP 136/88
--- NOTE | 2020-06-04 11:18 | NUR ---
MSADMTime: N A 84 year old FEMALE admitted to 5E under services of DR. HONORIO PHOENIX,ALFREDO. Pt. arrived via bed from ER. Chief complaint: FALL. NABOR VERDE L
[2020-06-04 11:30] VITALS: BP 140/75
[2020-06-04] MEDS ORDERED: NEURONTIN300 MG PO (11:32)
--- NOTE | 2020-06-04 12:36 | NUR ---
norco given for c/o generalized discomfort. will monitor.
--- NOTE | 2020-06-04 14:10 | NUR ---
OT NOTE Occupational therapy order received and chart reviewed. Patient has an MRI of the R femur pending for a possible fracture. Discussed with RN that OT will hold on therapy evaluation until results of MRI. Will check back. Thank you. Anna Fu OTR/Prachi
--- NOTE | 2020-06-04 14:22 | NUR ---
PHYSICAL THERAPY Physical therapy order was recieved and chart review was completed. Confirmed with nursing that patient is waiting for MRI of femur due to possible fracture. Pt will be held for evaluation at this time pending results. Will return to check status of patient when appropriate for PT evaluation.
--- NOTE | 2020-06-04 14:27 | NUR ---
ELHAM-S in to talk to patient. Patient states lives at home alone. There are 8 steps in the home. Physician: Dr Suh Pharmacy: [facility] Home health services: no Patient's level of ADLs: INDEPENDENT Patient has working utilities: yes DME: walker and a cane in every room of the house Follow-up physician's appointment after d/c: Will need scheduled Does patient want to access PORTAL?: no Discharge plan Pt resides alone and realizes that she cannot return home at this time. Pt states that her son lives about 3 minutes away from her home but he is unable to assist her if she falls because of his own back injury. Pt is hopeful that she can return home after a SNF stay. Pt's preference is [facility]. Pt states that she was there before approximately 2 years ago. RAYO SANTANA
--- NOTE | 2020-06-04 15:22 | NUR ---
OT NOTE Nursing screen and occupational therapy order received. Will follow up with the patient for completion of an OT eval. Thank you. Anna Fu, OTR/L
--- NOTE | 2020-06-04 15:31 | NUR ---
PHYSICAL THERAPY Nursing screen received and reviewed. PT order recieved and chart reviewed; will follow-up with patient for evaluation when appropriate. Thanks Marina Croft PT DPT
[2020-06-04 16:00] VITALS: BP 136/76
--- NOTE | 2020-06-04 21:04 | NUR ---
MEDICATED WITH PRN NORCO FOR C/O PAIN
--- NOTE | 2020-06-04 22:04 | NUR ---
MEDICATION SOMEWHAT EFFECTIVE PER PATIENT. DENIES NEEDS AT THIS TIME. BED IN LOWEST POSITION, CALL LIGHT IN REACH
--- NOTE | 2020-06-04 23:09 | NUR ---
BED BATH GIVEN AND LINEN CHANGED
[2020-06-05] VITALS: BP 126/54
--- NOTE | 2020-06-05 00:01 | NUR ---
24 HR chart check completed.
--- NOTE | 2020-06-05 01:09 | NUR ---
DR OLMEDO AWARE OF PATIENT C/O NAUSEA. ORDER TAKEN
--- NOTE | 2020-06-05 01:29 | NUR ---
MEDICATED WITH PRN ZOFRAN FOR C/O NAUSEA.
--- NOTE | 2020-06-05 05:55 | NUR ---
PATIENT LET DR OLMEDO REMOVE WOUND DRESSING FROM LEFT LOWER LEG AT THIS TIME.
--- NOTE | 2020-06-05 06:02 | NUR ---
MEDICATED WITH PRN NORCO FOR C/O LEG PAIN.
[2020-06-05 08:00] VITALS: BP 120/48
--- NOTE | 2020-06-05 09:18 | NUR ---
PHYSICAL THERAPY PT evaluation attempted. Patient awaiting MRI this morning. Will complete PT evaluation following MRI/recommendations on clarifiation on possibly femur fracture. Will continue to follow. Thank you. Ashanti Sherman,PT,DPT
--- NOTE | 2020-06-05 09:20 | NUR ---
OT NOTE Occupational therapy order received and chart reviewed. Patient awaiting an R femur MRI for possible fracture. Will hold on OT eval until results of MRI. Thank you. Anna Fu OTR/L
--- NOTE | 2020-06-05 09:35 | NUR ---
OFF FLOOR TO MRI
--- NOTE | 2020-06-05 13:10 | NUR ---
PHYSICAL THERAPY PT evaluation attempted. Spoke with patient in the room. Patient reports that she did have her MRI, but unknown results as of yet. Plan to return to complete PT evaluation once weight bearing status and plan of care is established. Thank you. Ashanti Sherman,PT,DPT
--- NOTE | 2020-06-05 13:14 | NUR ---
OT NOTE Occupational therapy order received and chart reviewed. Patient supine in bed reporting that she had her MRI this morning. No results as of yet. Will follow up with patient for completion of an OT evaluation. Anna Fu OTR/L
[2020-06-05 16:00] VITALS: BP 147/52
--- NOTE | 2020-06-05 20:50 | NUR ---
Renita given for left leg pain rated "8" see MAR.
--- NOTE | 2020-06-05 21:50 | NUR ---
NORCO EFFECTIVE FOR PAIN PER PT.
[2020-06-06] VITALS: BP 139/55
--- NOTE | 2020-06-06 07:02 | NUR ---
SLEPT WELL THROUGHT NIGHT. NO ACUTE DISTRESS NOTED.
[2020-06-06 07:05] LABS: BASO % 0.5 % (0.0-1.0); EOS # 0.2 10*3/uL (0.0-0.4); EOS % 2.7 % (1.0-4.0); HEMATOCRIT 35.9 % (37.0-47.0); LYMPH # 1.2 10*3/uL (1.3-4.4); LYMPH % 15.1 % (27.0-41.0); MEAN CORPUSCULAR HGB 31.1 pg (27.0-31.0); MEAN PLATELET VOLUME 10.3 fl (9.6-12.3); MONO # 0.9 10*3/uL (0.1-1.0); MONO % 11.1 % (3.0-9.0); NEUT # 5.7 10*3/uL (2.3-7.9); NEUT % 70.2 % (47.0-73.0); PLATELET COUNT AUTOMATED 196 10*3/uL (130-400); RED CELL DISTRI WIDTH 13.6 % (0-14.5); WHITE BLOOD COUNT 8.2 10*3/uL (4.8-10.8)
[2020-06-06 07:33] LABS: BUN 18 mg/dl (7-24); CHLORIDE 108 mmol/L (98-107); POTASSIUM 3.9 mmol/L (3.5-5.1); SODIUM 139 mmol/L (136-145)
[2020-06-06 08:00] VITALS: BP 174/73
--- NOTE | 2020-06-06 08:35 | NUR ---
PT GIVEN NORCO FOR C/O PAIN TO RIGHT LEG. WILL MONITOR FOR EFFECTIVENESS. CALL LIGHT IN REACH.
--- NOTE | 2020-06-06 08:39 | NUR ---
GUN BARREL FINISHER FAXED REFERRAL TO [facility] FOR REVIEW. WILL NEED PT/OT EVALS AND RESULTS FROM COVID SWAB. WILL WAIT ON ACCEPTANCE/DENIAL.
[2020-06-06 08:46] VITALS: BP 144/80
--- NOTE | 2020-06-06 09:00 | NUR ---
CM in to see patient. She is currently eating her breakfast. Discussed short term rehab and she is agreeable. Discussed facilities and she would like to go to [facility]. making line worker following for referral.
--- NOTE | 2020-06-06 09:35 | NUR ---
PT STATES THAT NORCO IS EFFECTIVE.
--- NOTE | 2020-06-06 09:48 | NUR ---
OT NOTE Occupational therapy order received and chart reviewed. Discussed with primary nurse this morning and patient's MRI results are not yet back. Will continue to hold. Thank you. Anna Fu OTR/L
--- NOTE | 2020-06-06 09:49 | NUR ---
PHYSICAL THERAPY Spoke with nurse and still waiting for MRI results regarding right hip. Pt still on hold for therapy evaluation pending those results. Will check back at a later time for progress and updated status. Marina Croft PT DPT
--- NOTE | 2020-06-06 11:15 | NUR ---
Occupational Therapy evaluation completed on five with full evaluation to follow. Recommend occupational therapy per plan of care and SNF upon discharge. Thank you for this referral. Anna Fu OTR/L
--- NOTE | 2020-06-06 12:20 | NUR ---
PRECERT IS REQUIRED. PATIENT HAS BEEN ACCEPTED TO [facility]. WILL NEED COVID RESULTS BEFORE ADMITTING TO THEIR FACILITY.
--- NOTE | 2020-06-06 12:26 | NUR ---
PHYSICAL THERAPY Physical therapy evaluation completed. Full details and evaluation to follow. High complexity skilled PT evaluation performed ([id number]). PT will work on strength, balance, bed mobility, transfers, ambulation, AD usage and safety per POC. Recommend SNF at discharge. Marina Croft PT DPT
--- NOTE | 2020-06-06 13:35 | NUR ---
WEARING APPAREL FOLDER COMPLETED HENS.
--- NOTE | 2020-06-06 14:41 | NUR ---
Nutritional Support Services Note: Appetite is good for meals, she is eating 100% of meals. Low Na diet as ordered. Wound to left leg noted, secondary to fall at home. Ht.5'2 Wt.147#. IBW 100-120. Staff to continue to encourage good intake of meals. Will provide pt with a night snack to help increase kcal and protien. No other nutrition intervention needed at this time. Rin Meeks Rdn Ld
--- NOTE | 2020-06-06 15:49 | NUR ---
DR PADILLA CONSULT CALLED TO [facility]TH [facility]LOOR [facility]. PHYSICIAN WILL SEE PATIENT TOMORROW.
[2020-06-06 16:00] VITALS: BP 140/78
--- NOTE | 2020-06-06 17:09 | NUR ---
PT GIVEN NORCO FOR C/O PAIN TO LEFT LEG. WILL MONITOR FOR EFFECTIVENESS. CALL LIGHT IN REACH.
--- NOTE | 2020-06-06 18:09 | NUR ---
BOBBY EFFECTIVE PER PT.
--- NOTE | 2020-06-06 19:30 | NUR ---
PATIENT DENIES ANY NEEDS. ASSESSMENT COMPLETE. RESPS EASY AND REGULAR. CALL LIGHT IN REACH.
--- NOTE | 2020-06-06 21:59 | NUR ---
24 HR chart check completed.
--- NOTE | 2020-06-06 23:53 | NUR ---
ASSUMED CARE OF PATIENT. PATIENT IS AAOX3 RESTING IN BED WITH EASY AND REGULAR RESPERS ON ROOM AIR. ASSESSMENT IS COMPLETE WITH NO C/O OR S/S OF DISTRESS NOTED AT THIS TIME. BED IS LOW, LOCKED, ALARMED, AND CALL LIGHT IS WITHIN REACH. WILL CONTINUE TO MONITOR, SEE INTERVENTIONS.
[2020-06-07] VITALS: BP 139/56
--- NOTE | 2020-06-07 06:00 | NUR ---
DR. OLMEDO INTO SEE PATIENT.
--- NOTE | 2020-06-07 07:50 | NUR ---
PHYSICAL THERAPY Patient presented to therapy in supine in bed with head of flat and bed alarm on. Patient reports severe pain in the R LE. Patient's MRI was negative for a fracture of the R LE. Javad gives informed consent for treatment. Patient was identified by name and on wristband. Patient has no IVs, no catheter and no spO2. Patient performed supine < > sitting on EOB with MAX A X 2. Patient with increased R LE pain with supine > sit transfer. Patient completed STS from sitting on EOB with MAX A X 2 and verbal cues for pushing off bed with hands. Patient stood at Walker with MIN A X 2 for < 30 SECONDS X 2 and the 3 rd time for 45 seconds. Patient in significant pain at this time in R LE. Patient has report of a 8/10 pain level in the R LE. Patient required MAX A X 2 to transfer back to supine in bed. Patient was 1:1 with this MAT MACHINE TENDER for 20 minutes total. BA GALVEZ MAT MACHINE TENDER
[2020-06-07 08:00] VITALS: BP 138/76
--- NOTE | 2020-06-07 08:20 | NUR ---
OT NOTE Pt was seen this A.M. 1:1 for 25 minute OT session. Upon arrival pt was supine in bed. Pt identified by name and and had complaints of 8/10 R leg and low back pain. Pt transferred supine to sit EOB with maxA X 2 for assist with BLE's and upper body. Pt completed multiple sit to stand transfers from bed level with maxA X 2 and use of w/w for UE support. Pt's bed was soiled, notified pt's aide who came to room to change out linens and depend while standing. Challenged pt's static standing tolerance needed for increased I in self care tasks and functional transfers. Pt was able to tolerate aprox 30-45 seconds at a time before sitting due to fatigue, weakness, and pain. Pt's depends were doffed, hygiene completed, and new depend donned with maxA. Attempted to complete standing pivot from the EOB to the bedside commode however pt was unable to advance BLE's and required maxA x 2 just to maintain static standing. Pt then transferred back into bed sit to supine with maxA X 2. There she was left with call light in hand, tray table in place, and bed alarm activated for safety. Continue with rec D/C plan to SNF. TONY Mckeon/Prachi
--- NOTE | 2020-06-07 08:20 | NUR ---
PRECERT WAS STARTED 06/06/2020.
--- NOTE | 2020-06-07 08:24 | NUR ---
SENIOR EMBEDDED SOFTWARE ENGINEER FAXED UPDATES TO [facility] FOR REVIEW. COVID PENDING/PRECERT HAS BEEN STARTED BOTH NEED TO BE RETURNED BEFORE ADMISSION TO [facility].
--- NOTE | 2020-06-07 08:45 | NUR ---
Medicated wtih norco per prn order for complaints of pain to bl legs. Pt had just worked with therapy.
--- NOTE | 2020-06-07 09:30 | NUR ---
Discussed discharge planning with Dr. Suh. Informed Dr. Suh awaiting precert and COVID results for patient to be discharged to [facility]. Will notify Dr. Suh if precert comes back today for potential discharge tomorrow.
--- NOTE | 2020-06-07 09:30 | NUR ---
States that pain medication was effective.
--- NOTE | 2020-06-07 10:50 | NUR ---
PRECERT HAS BEEN OBTAINED WHEN COVID RESULTS RETURN AND ARE NEGATIVE PATIENT CAN DISCHARGE TO [facility]. INFORMATION SECURITY ANALYST GUSTAVO IS AWARE.
--- NOTE | 2020-06-07 10:53 | NUR ---
Notified Dr. Vikash batres was received for [facility]. Waiting on COVID results. Per Dr. Suh she did the discharge summary and discharge for tomorrow. If the results come back negative she can be discharged to [facility] tomorrow (06/08).
[2020-06-07 12:00] VITALS: BP 143/71
--- NOTE | 2020-06-07 12:49 | NUR ---
PHYSICAL THERAPY Additional PT orders received from Dr. Carl regarding knee immobilizer for Right knee when gait training, Right LE WBAT. No resistive exercises to Right knee flexion or extension. Patient is allowed to remove knee immobilizer when in bed. Discussed with MDS MANAGER for continued plan of care. Continue to recommend SNF at discharge. Thank you. Ashanti Sherman,PT,DPT
--- NOTE | 2020-06-07 12:49 | NUR ---
OT NOTE An occupational therapy order from Dr. Carl was received and chart was reviewed. Per OT order, reason for consult is adaptive equipment and training for socks. The patient is RLE WBAT with the knee immobilizer for gait and is able to remove immobilizer when in bed. No resistive exercises to R knee flexion or extension. Will continue with POC as able with RLE WBAT with knee immobilize and AE training. Discussed with JIMENEZ. Thank you for the referral. Anna Fu, OTR/L
--- NOTE | 2020-06-07 14:28 | NUR ---
OCCUPATIONAL THERAPY CO-SIGN I approve of the Occupational Therapy notes written above. DESMOND CAGE, OTR/L
--- NOTE | 2020-06-07 14:39 | NUR ---
PHYSICAL THERAPY CO-SIGN I approve of the Physical Therapy notes written above. GUSTAVO MCGEE PT,DPT
[2020-06-07 16:00] VITALS: BP 152/68
[2020-06-07 20:00] VITALS: BP 155/62
--- NOTE | 2020-06-07 21:34 | NUR ---
URIAHCO GIVEN PER ORDER FOR LEFT LEG PAIN RATED "6" SEE MAR.
--- NOTE | 2020-06-07 22:10 | NUR ---
PATIENT C/O HEARTBURN CALLED DR. ESQUEDA AND ORDER RECIEVED.
--- NOTE | 2020-06-07 22:30 | NUR ---
NORCO EFFECTIVE FOR PAIN PER PT.
--- NOTE | 2020-06-07 23:09 | NUR ---
PATIENT HAD C/O HEARTBURN AND TUMS GIVEN PER ORDER. SEE MAR.
[2020-06-08] VITALS: BP 142/81; BP 153/61
--- NOTE | 2020-06-08 06:22 | NUR ---
BOBBY GIVEN PER ORDER FOR LEFT LEG PAIN RATED "5-6" SEE MAR.
--- NOTE | 2020-06-08 07:20 | NUR ---
norco effective for pain per pt.
[2020-06-08 08:00] VITALS: BP 139/61
[2020-06-08 16:00] VITALS: BP 142/76
--- NOTE | 2020-06-08 18:10 | NUR ---
Pt having some bleeding from left calf at suture site. Notified Dr. Vaughn as site to calf has a hard area with palpation. Dr. Vaughn states it is hematoma.
--- NOTE | 2020-06-08 18:29 | NUR ---
Dr. Vaughn states that covid came back negative and pt may be dc to [facility] tonight if she is ok to go. I spoke with [facility] staff and they are prepared to accept pt this evening.
--- NOTE | 2020-06-08 18:37 | NUR ---
Notified pt that covid swab was negative and she is ok to go to [facility] tonight. Pt is currently eating dinner and became upset states she really doesn't want to go this evening. Notified Dr. Vaughn who states that is fine pt can be dc in AM. Notified [facility]. Notified family.
--- NOTE | 2020-06-08 20:39 | NUR ---
PT C/O PAIN TO RIGHT LEG. NORCO GIVEN. WILL MONITOR FOR EFFECTIVENESS. CALL LIGHT IN REACH.
--- NOTE | 2020-06-08 21:20 | NUR ---
PT GIVEN CEPACOL FOR C/O COUGH. WILL MONITOR FOR EFFECTIVENESS.
--- NOTE | 2020-06-08 21:39 | NUR ---
BOBBY EFFECTIVE PER PT.
[2020-06-09] VITALS: BP 134/55
--- NOTE | 2020-06-09 03:27 | NUR ---
PT GIVEN NORCO FOR C/O BODY ACHES AND RIGHT LEG PAIN. WILL MONITOR FOR EFFECTIVENESS. CALL LIGHT IN REACH.
--- NOTE | 2020-06-09 04:27 | NUR ---
NORCO IS EFFECTIVE AT THIS TIME.
[2020-06-09 08:00] VITALS: BP 134/59
--- NOTE | 2020-06-09 09:41 | NUR ---
MEDICATED WITH PRN PO NORCO FOR BILATERAL LEGS PAIN, ALSO PRN CEPACOL FOR SORE/DRY THROAT.
--- NOTE | 2020-06-09 09:49 | NUR ---
PATIENT SCHEDULED FOR ENGLISH LECTURER BY AMBULANCE SERVICE AT 10AM FOR DISCHARGE TO [facility].
--- NOTE | 2020-06-09 10:30 | NUR ---
REPORT CALLED TO RECEIVING NURSE AT [facility]. PATIENT DISCHARGED TO [facility] BY AMBULANCE SERVICE AT 1015AM.
== END 2020-06-09 10:14 | disposition other institution (70) | DRG 605 ==
LOC: ED 06:13 → 5E 10:13 → EDHOLD 10:13 → 5E 10:46
PROVIDERS: ADMIT Internal Medicine; ATTEND Internal Medicine
PROC: 0HQLXZZ Repair Left Lower Leg Skin, External Approach (ICD-10-PCS; principal; 2020-06-04)
DX: S81.812A Laceration without foreign body, left lower leg, initial encounter (principal); F33.0 Major depressive disorder, recurrent, mild; S76.111A Strain of right quadriceps muscle, fascia and tendon, initial encounter; R26.9 Unspecified abnormalities of gait and mobility; R62.7 Adult failure to thrive; K59.09 Other constipation; E03.9 Hypothyroidism, unspecified; M19.90 Unspecified osteoarthritis, unspecified site; Z66 Do not resuscitate; F41.1 Generalized anxiety disorder; Z20.828 Contact with and (suspected) exposure to other viral communicable diseases; W19.XXXA Unspecified fall, initial encounter; S76.311A Strain of muscle, fascia and tendon of the posterior muscle group at thigh level, right thigh, initial encounter; G62.9 Polyneuropathy, unspecified; Z51.5 Encounter for palliative care; G89.29 Other chronic pain; M54.9 Dorsalgia, unspecified; Y92.89 Other specified places as the place of occurrence of the external cause; Y93.89 Activity, other specified; Y99.8 Other external cause status; Z88.0 Allergy status to penicillin; Z88.2 Allergy status to sulfonamides; Z88.5 Allergy status to narcotic agent; Z88.8 Allergy status to other drugs, medicaments and biological substances; Z91.041 Radiographic dye allergy status; Z91.040 Latex allergy status; Z79.1 Long term (current) use of non-steroidal anti-inflammatories (NSAID); Z79.899 Other long term (current) drug therapy

== ENCOUNTER 2020-07-15 04:45 | Emergency (ER) | payer MEDICARE ==
[~2020-07-15] VITALS: Ht 170.1 cm; Wt 68.0 kg
[~2020-07-15 04:45] MED LIST changes: +NEURONTIN300 MG PO
[2020-07-15 04:50] VITALS: BP 150/65
[2020-07-15 05:43] LABS: BILIRUBIN Negative (Negative); BLOOD Negative (Negative); CLARITY Turbid (Clear); COLOR Yellow (Yellow); GLUCOSE Negative (Negative); KETONE Negative (Negative); LEUKO ESTERASE Negative (Negative); NITRITE Negative (Negative); SPECIFIC GRAVITY 1.015 (1.001-1.030); UROBILINOGEN 0.2 E.U./dl (0.0-1.0)
[2020-07-15 05:47] LABS: PH 8.5 (4.5-8.0)
[2020-07-15 05:54] LABS: ALBUMIN 2.2 gm/dl (3.1-4.5); ALKALINE PHOSPHATASE 211 U/L (45-117); BUN 13 mg/dl (7-24); CHLORIDE 110 mmol/L (98-107); CREATININE 0.73 mg/dL (0.55-1.02); POTASSIUM 3.5 mmol/L (3.5-5.1); SGOT/AST 22 IU/L (3-35); SGPT/ALT 23 U/L (12-78); SODIUM 140 mmol/L (136-145); TOTAL PROTEIN 6.2 gm/dL (6.4-8.2)
[2020-07-15 05:54] LABS: BACTERIA 3+; WBC 0-2 wbc/hpf (0-5)
[2020-07-15 05:57] LABS: BASO # 0.1 10*3/uL (0.0-0.1); BASO % 0.7 % (0.0-1.0); EOS # 0.4 10*3/uL (0.0-0.4); EOS % 4.4 % (1.0-4.0); HEMATOCRIT 33.4 % (37.0-47.0); LYMPH # 1.5 10*3/uL (1.3-4.4); LYMPH % 18.1 % (27.0-41.0); MEAN CELL VOLUME 93.3 fl (81.0-99.0); MEAN CORPUSCULAR HGB 29.1 pg (27.0-31.0); MEAN CORPUSCULAR HGB CONC 31.1 g/dl (33.0-37.0); MEAN PLATELET VOLUME 9.4 fl (9.6-12.3); MONO # 0.7 10*3/uL (0.1-1.0); MONO % 7.9 % (3.0-9.0); NEUT # 5.7 10*3/uL (2.3-7.9); NEUT % 67.5 % (47.0-73.0); PLATELET COUNT AUTOMATED 377 10*3/uL (130-400); RED BLOOD COUNT 3.58 10*6/uL (4.10-5.10); RED CELL DISTRI WIDTH 13.3 % (0-14.5); WHITE BLOOD COUNT 8.4 10*3/uL (4.8-10.8)
== END 2020-07-15 07:28 | disposition home or self-care (01) ==
LOC: ED 04:45
PROVIDERS: Emergency Medicine
DX: N39.0 Urinary tract infection, site not specified (principal); Z88.0 Allergy status to penicillin; Z88.2 Allergy status to sulfonamides; Z91.040 Latex allergy status; Z88.5 Allergy status to narcotic agent; Z79.899 Other long term (current) drug therapy; Z90.49 Acquired absence of other specified parts of digestive tract; Z90.710 Acquired absence of both cervix and uterus

== ENCOUNTER 2020-11-10 16:03 | Inpatient (IN) | payer MEDICARE, MEDICAID ==
[~2020-11-10] VITALS: Ht 154.9 cm; Wt 75.7 kg
[~2020-11-10 16:03] MED LIST changes: +CEFUROXIME250 MG PO; +MIRTAZAPINE15 M2 PO; +MOM30 M1 PO; +POTASSIUM CHLO20 ME3 PO
[2020-11-10 16:12] VITALS: BP 123/51
[2020-11-10 16:47] LABS: BASO % 0.4 % (0.0-1.0); EOS # 0.1 10*3/uL (0.0-0.4); EOS % 0.5 % (1.0-4.0); HEMATOCRIT 36.1 % (37.0-47.0); LYMPH # 1.2 10*3/uL (1.3-4.4); MEAN CELL VOLUME 90.9 fl (81.0-99.0); MEAN CORPUSCULAR HGB 29.7 pg (27.0-31.0); MEAN CORPUSCULAR HGB CONC 32.7 g/dl (33.0-37.0); MEAN PLATELET VOLUME 10.1 fl (9.6-12.3); MONO # 0.8 10*3/uL (0.1-1.0); MONO % 7.6 % (3.0-9.0); NEUT # 7.9 10*3/uL (2.3-7.9); NEUT % 79.3 % (47.0-73.0); PLATELET COUNT AUTOMATED 299 10*3/uL (130-400); RED BLOOD COUNT 3.97 10*6/uL (4.10-5.10); RED CELL DISTRI WIDTH 13.1 % (0-14.5); WHITE BLOOD COUNT 9.9 10*3/uL (4.8-10.8)
[2020-11-10 17:07] LABS: ALBUMIN 2.7 gm/dl (3.1-4.5); ALKALINE PHOSPHATASE 134 U/L (45-117); BUN 11 mg/dl (7-24); CHLORIDE 105 mmol/L (98-107); SGOT/AST 23 IU/L (3-35); SGPT/ALT 14 U/L (12-78); SODIUM 137 mmol/L (136-145); TOTAL PROTEIN 6.5 gm/dL (6.4-8.2)
[2020-11-10 20:12] VITALS: BP 148/78
[2020-11-10 21:50] VITALS: BP 132/72
[2020-11-10 22:00] VITALS: BP 151/63
[2020-11-10] MEDS ORDERED: DULCOLAX STOOL100 M1 PO (23:33)
[2020-11-11 06:52] LABS: BASO # 0.1 10*3/uL (0.0-0.1); BASO % 0.5 % (0.0-1.0); EOS # 0.1 10*3/uL (0.0-0.4); EOS % 0.7 % (1.0-4.0); HEMATOCRIT 36.5 % (37.0-47.0); LYMPH # 1.4 10*3/uL (1.3-4.4); LYMPH % 12.2 % (27.0-41.0); MEAN CELL VOLUME 92.9 fl (81.0-99.0); MEAN CORPUSCULAR HGB 29.3 pg (27.0-31.0); MEAN CORPUSCULAR HGB CONC 31.5 g/dl (33.0-37.0); MEAN PLATELET VOLUME 10.4 fl (9.6-12.3); MONO # 1.2 10*3/uL (0.1-1.0); MONO % 10.5 % (3.0-9.0); NEUT # 8.6 10*3/uL (2.3-7.9); NEUT % 75.7 % (47.0-73.0); PLATELET COUNT AUTOMATED 299 10*3/uL (130-400); RED BLOOD COUNT 3.93 10*6/uL (4.10-5.10); RED CELL DISTRI WIDTH 13.2 % (0-14.5); WHITE BLOOD COUNT 11.3 10*3/uL (4.8-10.8)
[2020-11-11 07:01] LABS: BUN 13 mg/dl (7-24); CHLORIDE 105 mmol/L (98-107); CREATININE 0.76 mg/dL (0.55-1.02); SODIUM 135 mmol/L (136-145)
[2020-11-11 08:00] VITALS: BP 145/85
[2020-11-11 12:00] VITALS: BP 104/55
[2020-11-11 16:00] VITALS: BP 133/56
[2020-11-11 20:00] VITALS: BP 145/61
[2020-11-12] VITALS: BP 97/53
[2020-11-12 06:50] LABS: BASO # 0.1 10*3/uL (0.0-0.1); BASO % 0.6 % (0.0-1.0); EOS # 0.2 10*3/uL (0.0-0.4); EOS % 1.8 % (1.0-4.0); HEMATOCRIT 33.6 % (37.0-47.0); LYMPH # 2.2 10*3/uL (1.3-4.4); LYMPH % 26.3 % (27.0-41.0); MEAN CELL VOLUME 90.6 fl (81.0-99.0); MEAN CORPUSCULAR HGB 29.6 pg (27.0-31.0); MEAN CORPUSCULAR HGB CONC 32.7 g/dl (33.0-37.0); MEAN PLATELET VOLUME 10.1 fl (9.6-12.3); MONO # 0.8 10*3/uL (0.1-1.0); MONO % 10.1 % (3.0-9.0); NEUT % 60.8 % (47.0-73.0); PLATELET COUNT AUTOMATED 284 10*3/uL (130-400); RED BLOOD COUNT 3.71 10*6/uL (4.10-5.10); RED CELL DISTRI WIDTH 13.2 % (0-14.5); WHITE BLOOD COUNT 8.2 10*3/uL (4.8-10.8)
[2020-11-12 07:03] LABS: BUN 13 mg/dl (7-24); CHLORIDE 104 mmol/L (98-107); POTASSIUM 3.7 mmol/L (3.5-5.1); SODIUM 135 mmol/L (136-145)
[2020-11-12 08:00] VITALS: BP 124/66
[2020-11-12 12:00] VITALS: BP 120/52
[2020-11-12 16:00] VITALS: BP 125/62
[2020-11-12 20:00] VITALS: BP 117/59
[2020-11-13] VITALS: BP 104/58
[2020-11-13 05:00] VITALS: BP 156/90
[2020-11-13 06:13] VITALS: BP 86/46
[2020-11-13 06:32] LABS: BASO # 0.1 10*3/uL (0.0-0.1); BASO % 0.8 % (0.0-1.0); EOS # 0.2 10*3/uL (0.0-0.4); HEMATOCRIT 33.3 % (37.0-47.0); LYMPH # 1.5 10*3/uL (1.3-4.4); LYMPH % 19.9 % (27.0-41.0); MEAN CELL VOLUME 92.5 fl (81.0-99.0); MEAN CORPUSCULAR HGB 29.4 pg (27.0-31.0); MEAN CORPUSCULAR HGB CONC 31.8 g/dl (33.0-37.0); MEAN PLATELET VOLUME 10.2 fl (9.6-12.3); MONO # 0.6 10*3/uL (0.1-1.0); MONO % 7.3 % (3.0-9.0); NEUT # 5.3 10*3/uL (2.3-7.9); NEUT % 69.6 % (47.0-73.0); PLATELET COUNT AUTOMATED 264 10*3/uL (130-400); WHITE BLOOD COUNT 7.6 10*3/uL (4.8-10.8)
[2020-11-13 06:44] LABS: BUN 16 mg/dl (7-24); CHLORIDE 102 mmol/L (98-107); CREATININE 0.68 mg/dL (0.55-1.02); POTASSIUM 3.4 mmol/L (3.5-5.1); SODIUM 135 mmol/L (136-145)
[2020-11-13 08:00] VITALS: BP 109/50
[2020-11-13] MEDS ORDERED: FENTANYL 0100 MCG/2 IV (10:42)
[2020-11-13] MEDS ORDERED: ALPRAZOLAM0.25 M2 PO (10:42)
[2020-11-13 12:00] VITALS: BP 135/64
== END 2020-11-13 14:22 | DRG 315 ==
LOC: ED 16:03 → EDHOLD 18:45 → 5E 18:45
PROVIDERS: Student in an Organized Health Care Education/Training Program; Surgery Vascular Surgery; ADMIT Internal Medicine; ATTEND Internal Medicine
DX: R58 Hemorrhage, not elsewhere classified (principal); E44.0 Moderate protein-calorie malnutrition; N39.0 Urinary tract infection, site not specified; F33.1 Major depressive disorder, recurrent, moderate; F41.1 Generalized anxiety disorder; Z66 Do not resuscitate; K59.09 Other constipation; E03.9 Hypothyroidism, unspecified; K21.00 Gastro-esophageal reflux disease with esophagitis, without bleeding; R29.6 Repeated falls; Z51.5 Encounter for palliative care; Z20.822 Contact with and (suspected) exposure to COVID-19; M15.9 Polyosteoarthritis, unspecified; Z88.0 Allergy status to penicillin; Z88.2 Allergy status to sulfonamides; Z88.8 Allergy status to other drugs, medicaments and biological substances; Z88.1 Allergy status to other antibiotic agents; Z88.5 Allergy status to narcotic agent; Z91.041 Radiographic dye allergy status; Z91.040 Latex allergy status; Z90.49 Acquired absence of other specified parts of digestive tract; Z90.710 Acquired absence of both cervix and uterus; Z98.891 History of uterine scar from previous surgery; Z83.3 Family history of diabetes mellitus; Z82.3 Family history of stroke; Z82.49 Family history of ischemic heart disease and other diseases of the circulatory system; Z80.9 Family history of malignant neoplasm, unspecified; Z68.31 Body mass index [BMI] 31.0-31.9, adult